=== PATIENT | female | born 1965 | race Caucasian/White ===

== ENCOUNTER 2017-10-18 03:17 | Emergency (ER) | payer OTHER ==
[~2017-10-18] VITALS: Ht 157.5 cm; Wt 57.1 kg
[~2017-10-18 03:17] MED LIST: BENTYL10 MG PO; BENTYL20 MG PO; BINOSTO70 MG PO; CIPROFLOXACIN500 M1 PO; EPIPEN ADU0.3 MG/0.3 IM; FLAGYL500 MG PO; HYDROXYCHLOROQ200 MG PO; IMODIUM MS REL1 EACH PO; LO-DOSE ASPIRIN81 M2 PO; LYRICA50 MG PO; LYRICA75 MG PO; METRONIDAZOLE500 MG PO; MOTRIN800 MG PO; ONDANSETRON ODT4 MG PO; PANTOPRAZOLE SO40 MG PO; SYNTHROID75 MCG PO; SYNTHROID88 MCG PO; TIZANIDINE HCL4 MG PO; TRAMADOL HCL50 MG PO; VIBRAMYCIN100 MG PO; VISINE ADVANCED15 ML BOTH EYES; ZANTAC75 M1 PO; ZOFRAN ODT4 MG PO
[2017-10-18 03:47] LABS: HEMATOCRIT 38.3 % (36.0-46.0); HEMOGLOBIN 13.3 G/DL (11.9-15.5); MCH 31.2 PG (29.0-34.0); MCHC 34.7 G/DL (30.0-36.0); MCV 89.9 FL (83-99); PLATELET COUNT 200 K/uL (156-360); RBC DIS.WIDTH-CV 11.7 % (11.8-14.6); RBC DIS.WIDTH-SD 37.5 % (39-53); RED BLOOD COUNT 4.26 M/uL (3.80-5.20); WHITE BLOOD COUNT 6.5 K/uL (4.1-10.2)
[2017-10-18 03:58] LABS: ALBUMIN 4.7 g/dL (3.2-4.8); CHLORIDE 104 mEq/L (99-109); POTASSIUM 3.9 mEq/L (3.7-5.4); SODIUM 141 mEq/L (136-147)
[2017-10-18 04:00] LABS: GLUCOSE 96 mg/dL (70-99); TOTAL PROTEIN 7.9 g/dL (6.4-8.3)
[2017-10-18 04:02] LABS: TOTAL BILIRUBIN 0.7 mg/dL (0.0-1.0)
[2017-10-18 04:04] LABS: ALKALINE PHOSPHATASE 57 IU/L (3-129); CREATININE 0.8 mg/dL (0.6-1.3); GFR ESTIMATE (CALCULATED) > 59 mL/min/
[2017-10-18 04:05] LABS: UREA NITROGEN (BUN) 20 mg/dL (9-23)
[2017-10-18 04:06] LABS: AST (GOT) 19 IU/L (2-34)
[2017-10-18 04:07] LABS: ALT (GPT) 15 IU/L (3-49)
[2017-10-18 04:08] LABS: APPEARANCE SL.HAZY ((CLEAR)); BILIRUBIN NEGATIVE; BLOOD NEGATIVE; COLOR YELLOW ((YELLOW)); GLUCOSE (STRIP) NEGATIVE; KETONES 80; LEUKOCYTES MODERATE; NITRITE NEGATIVE; PROTEIN (STRIP) 30; SPECIFIC GRAVITY 1.031 (1.000-1.030); UROBILINOGEN 0.2 MG/DL (0.2-1.0)
[2017-10-18 04:13] LABS: QUANTITATIVE HCG < 4.0 MIU/ML
[2017-10-18 04:15] LABS: BACTERIA NONE SEEN /HPF; EPITHELIAL CELLS 1+ /HPF; MUCUS TRACE /LPF; RED BLOOD CELLS 0-5 /HPF (0-5); UCUL ADDED? YES
[2017-10-18 05:50] LABS: LIPASE 11 U/L (1.0-51.0)
[2017-10-18] MEDS ORDERED: TYLENOL EXTRA500 MG PO (06:19)
[2017-10-18] MEDS ORDERED: ZOFRAN4 MG PO (06:19)
[2017-10-18] MEDS ORDERED: MUCINEX DM ER1 EACH PO (06:19)
[2017-10-18 06:27] VITALS: BP 129/76
== END 2017-10-18 06:46 | disposition home or self-care (01) ==
LOC: EME 03:17
DX: B34.9 Viral infection, unspecified (principal); M32.9 Systemic lupus erythematosus, unspecified; M35.00 Sjogren syndrome, unspecified; J45.909 Unspecified asthma, uncomplicated; K21.9 Gastro-esophageal reflux disease without esophagitis; Z85.850 Personal history of malignant neoplasm of thyroid; Z91.040 Latex allergy status; Z88.1 Allergy status to other antibiotic agents; Z91.041 Radiographic dye allergy status; Z88.2 Allergy status to sulfonamides; Z79.82 Long term (current) use of aspirin
CPT/HCPCS: 71046; 80053; 81003; 83690; 84702; 85027; 87086; 87502; 99281; 99285; J2405; J7030

== ENCOUNTER 2018-02-21 00:53 | Inpatient (IN) | payer OTHER ==
[~2018-02-21] VITALS: Ht 157.5 cm; Wt 53.4 kg
[~2018-02-21 00:53] MED LIST changes: +MUCINEX DM ER1 EACH PO; +TYLENOL EXTRA500 MG PO; +ZOFRAN4 MG PO
[2018-02-21 01:30] LABS: BASOPHIL (%) 0.2 % (0-1); EOSINOPHIL (%) 0 % (0-5); HEMATOCRIT 35.8 % (36.0-46.0); HEMOGLOBIN 12.7 G/DL (11.9-15.5); IMMATURE GRANULOCYTE (%) 0.3 % (0.0-0.7); LYMPHOCYTE (%) 4.9 % (15-42); LYMPHOCYTE COUNT 0.3 K/uL (1.0-2.8); MCHC 35.5 G/DL (30.0-36.0); MCV 87.3 FL (83-99); MONOCYTE (%) 3.2 % (3-12); MONOCYTE COUNT 0.2 K/uL (0-0.8); NEUTROPHIL (%) 91.4 % (45-76); PLATELET COUNT 197 K/uL (156-360); RBC DIS.WIDTH-CV 11.4 % (11.8-14.6); RBC DIS.WIDTH-SD 36.5 % (39-53); WHITE BLOOD COUNT 6.6 K/uL (4.1-10.2)
[2018-02-21 01:41] LABS: ALBUMIN 4.2 g/dL (3.2-4.8); CHLORIDE 102 mEq/L (99-109); POTASSIUM 3.3 mEq/L (3.7-5.4); SODIUM 141 mEq/L (136-147)
[2018-02-21 01:43] LABS: GLUCOSE 108 mg/dL (70-99)
[2018-02-21 01:44] LABS: TOTAL PROTEIN 7.2 g/dL (6.4-8.3)
[2018-02-21 01:45] LABS: TOTAL BILIRUBIN 0.4 mg/dL (0.0-1.0)
[2018-02-21 01:47] LABS: ALKALINE PHOSPHATASE 81 IU/L (3-129); CREATININE 0.9 mg/dL (0.6-1.3); GFR ESTIMATE (CALCULATED) > 59 mL/min/
[2018-02-21 01:48] LABS: UREA NITROGEN (BUN) 12 mg/dL (9-23)
[2018-02-21 01:49] LABS: AST (GOT) 17 IU/L (2-34)
[2018-02-21 01:50] LABS: ALT (GPT) 14 IU/L (3-49); LIPASE 9 U/L (1.0-51.0)
[2018-02-21 02:54] LABS: APPEARANCE CLEAR ((CLEAR)); BILIRUBIN NEGATIVE; BLOOD NEGATIVE; COLOR STRAW ((YELLOW)); GLUCOSE (STRIP) NEGATIVE; KETONES NEGATIVE; LEUKOCYTES SMALL; NITRITE NEGATIVE; PROTEIN (STRIP) NEGATIVE; SPECIFIC GRAVITY 1.008 (1.000-1.030); UROBILINOGEN 0.2 MG/DL (0.2-1.0)
[2018-02-21 03:03] LABS: BACTERIA NONE SEEN /HPF; EPITHELIAL CELLS RARE /HPF; MUCUS NONE SEEN /LPF; RED BLOOD CELLS 0-5 /HPF (0-5); UCUL ADDED? YES
[2018-02-21 07:39] VITALS: BP 117/58
[2018-02-21 11:18] VITALS: BP 125/88
[2018-02-21] MEDS ORDERED: BENTYL10 MG PO (11:43)
[2018-02-21] MEDS ORDERED: LYRICA50 MG PO (11:49)
[2018-02-21] MEDS ORDERED: SYNTHROID88 MCG PO (11:54)
[2018-02-21 15:40] VITALS: BP 98/53
[2018-02-21 19:56] VITALS: BP 110/55
[2018-02-22 00:23] VITALS: BP 96/54
[2018-02-22 03:51] VITALS: BP 108/55
[2018-02-22 06:10] LABS: BASOPHIL (%) 0.1 % (0-1); EOSINOPHIL (%) 0 % (0-5); HEMATOCRIT 31.6 % (36.0-46.0); HEMOGLOBIN 10.7 G/DL (11.9-15.5); MCH 30.9 PG (29.0-34.0); MCHC 33.9 G/DL (30.0-36.0); MCV 91.3 FL (83-99); MONOCYTE (%) 8.5 % (3-12); MONOCYTE COUNT 0.7 K/uL (0-0.8); NEUTROPHIL (%) 78.4 % (45-76); NEUTROPHIL COUNT 6.2 K/uL (1.8-6.4); PLATELET COUNT 163 K/uL (156-360); RBC DIS.WIDTH-CV 11.8 % (11.8-14.6); RED BLOOD COUNT 3.46 M/uL (3.80-5.20); WHITE BLOOD COUNT 7.9 K/uL (4.1-10.2)
[2018-02-22 06:16] LABS: CHLORIDE 106 MEQ/L (99-109); CREATININE 0.8 MG/DL (0.6-1.3); GFR ESTIMATE (CALCULATED) > 59 mL/min/; POTASSIUM 3.7 MEQ/L (3.7-5.4); SODIUM 141 MEQ/L (136-147); UREA NITROGEN (BUN) 10 mg/dL (9-23)
[2018-02-22 06:23] LABS: GLUCOSE 80 mg/dL (70-99)
[2018-02-22 07:09] VITALS: BP 117/59
[2018-02-22 15:21] VITALS: BP 135/64
[2018-02-22 23:54] VITALS: BP 124/70
[2018-02-23 07:24] VITALS: BP 125/28
[2018-02-23 09:36] LABS: HEMATOCRIT 34.7 % (36.0-46.0); HEMOGLOBIN 11.8 G/DL (11.9-15.5); MCH 30.2 PG (29.0-34.0); MCV 88.7 FL (83-99); RBC DIS.WIDTH-CV 11.5 % (11.8-14.6); RBC DIS.WIDTH-SD 36.8 % (39-53); RED BLOOD COUNT 3.91 M/uL (3.80-5.20); WHITE BLOOD COUNT 6.3 K/uL (4.1-10.2)
[2018-02-23 09:43] LABS: PLATELET COUNT 223 K/uL (156-360)
[2018-02-23 15:35] VITALS: BP 119/65
[2018-02-23 23:50] VITALS: BP 134/65
[2018-02-24 07:36] VITALS: BP 117/59
[2018-02-24] MEDS ORDERED: ZOFRAN4 MG PO (09:39)
[2018-02-24] MEDS ORDERED: LEVAQUIN750 MG PO (09:39)
== END 2018-02-24 12:45 | disposition home or self-care (01) | DRG 194 ==
LOC: EME → EDBD 00:53 → EME 00:53 → 5SOUTH 03:45 → EDOF 03:45 → ENRESERV 03:48 → 5SOUTH 07:24
PROVIDERS: Emergency Medicine; Hospitalist; Physician Assistant Medical
DX: J13 Pneumonia due to Streptococcus pneumoniae (principal); J18.9 Pneumonia, unspecified organism; R11.2 Nausea with vomiting, unspecified; M32.9 Systemic lupus erythematosus, unspecified; I73.00 Raynaud's syndrome without gangrene; E89.0 Postprocedural hypothyroidism; E87.2 Acidosis; K29.70 Gastritis, unspecified, without bleeding; M35.00 Sjogren syndrome, unspecified; Z82.49 Family history of ischemic heart disease and other diseases of the circulatory system; Z92.3 Personal history of irradiation; Z85.850 Personal history of malignant neoplasm of thyroid; Z83.3 Family history of diabetes mellitus; Z84.89 Family history of other specified conditions; Z90.710 Acquired absence of both cervix and uterus; J00 Acute nasopharyngitis [common cold]; K52.9 Noninfective gastroenteritis and colitis, unspecified; Z88.1 Allergy status to other antibiotic agents
CPT/HCPCS: 71046; 74176; 80048; 80053; 81003; 83605; 83690; 85025; 85027; 87040; 87070; 87077; 87086; 87181; 87205; 87449; 87801; 99202; 99281; 99285; J1650; J1885; J1956; J2405; J2765; J7030; J7120; S0028